=== PATIENT | female | born 1980 | race African-American/Black ===

== ENCOUNTER 2019-07-07 09:44 | Emergency (ER) | payer SELFPAY ==
[~2019-07-07] VITALS: Ht 157.5 cm; Wt 67.2 kg
[2019-07-07 09:53] VITALS: BP 100/55
[2019-07-07] MEDS ORDERED: CARBAMIDE PEROXIDE EAR DROPS 6.5%, 15ML ONE (10:27)
[2019-07-07] MEDS ORDERED: CARBAMIDE PEROXIDE EAR DROPS 6.5%, 15ML LEFT EAR ONE (10:30)
[2019-07-07] MEDS ORDERED: ACETAMINOPHEN 500 MG TABLET ONE (10:46)
[2019-07-07] MEDS ORDERED: ACETAMINOPHEN 500 MG TABLET PO ONE (11:00)
== END 2019-07-07 11:21 | disposition home or self-care (01) ==
LOC: ED 10:35
DX: O26.891 Other specified pregnancy related conditions, first trimester (principal); H66.002 Acute suppurative otitis media without spontaneous rupture of ear drum, left ear; H61.22 Impacted cerumen, left ear; Z3A.11 11 weeks gestation of pregnancy
CPT/HCPCS: 99283

== ENCOUNTER 2020-04-02 16:49 | Emergency (ER) | payer MEDICAID ==
[~2020-04-02] VITALS: Ht 154.9 cm; Wt 60.0 kg
--- NOTE | 2020-04-02 17:08 | NUR ---
INITIAL PT CONTACT. PT WAS IN LOBBY AND HAD A NEAR SYNCOPAL EVENT, STATES "I WAS ABOUT TO PASS OUT SO I SAT DOWN", CODE 250 WAS CALLED. PRESENTS TO ED C/O SPENCER X3 DAYS, DAIRRHEA, LIGHT HEADED, STS SYNCOPAL. PT STATES SIMILAR SYMPTOMS HAVE OCCURED IN THE PAST, FOLLOWING A FALL. PT STATES SHE FELL LAST NIGHT AND HIT HER HEAD BECAUSE SHE FELT LIKE SHE "WAS GOING TO PASS OUT, BUT MY HEAD HURT BEFORE ALL OF THAT". HX PSYCH/CHROHNS. PT UPRIGHT ON GURNEY. ANXIOUS. VSS. CALL LIGHT AND PERSONAL BELONGINGS IN PLACE.
--- NOTE | 2020-04-02 17:11 | NUR ---
LAWSON (PT CONTACT [phone]) CALLED TO DOOR TENDER PT DAUGHTER PER PT REQUEST.
--- NOTE | 2020-04-02 17:35 | NUR ---
PT ARRIVED WITH INFANT DAUGHTER. PROVIDED WITH WARM BLANKETS, DIAPERS & HAT FROM L[facility], PT FRIEND LAWSON ARRIVED TO ROOM & SPOKE WITH PT THEN LEFT WITH TO CARE FOR AT HOME.
[2020-04-02 18:00] VITALS: BP 110/65
--- NOTE | 2020-04-02 18:00 | NUR ---
PT RESTING CALMLY ON GURNEY WITH EYES CLOSED AND BLANKET OVER FACE. NAD, VSS. PT PROVIDED WARM BLANKET, NO ADDITIONAL NEEDS AT THIS TIME. CALL LIGHT IN REACH. CONTINUOUS PULSE OX AND CEMENTER OIL WELL IN PLACE.
--- NOTE | 2020-04-02 18:48 | NUR ---
bedside report to duc funk
[2020-04-02] MEDS ORDERED: SODIUM CHLORIDE 0.9% 1,000ML IVBOLUS ONE (19:30)
[2020-04-02] MEDS ORDERED: KETOROLAC 30 MG/1 ML IVPush ONE (19:30)
[2020-04-02] MEDS ORDERED: PROCHLORPERAZINE 5 MG/ML, 2ML IVPush ONE (19:30)
--- NOTE | 2020-04-02 19:33 | NUR ---
Patient became upset when telegraphic typewriter mechanic went to into room to start IV. [employer] Specialist asked patient if she could leave her ECG leads on since she was coming in with a sycopal episode. Patient started throwing her blankets saying she was clasterphobic. Patient stated that telegraphic typewriter mechanic needed to use the left arm for her IV. [employer] Specialist moved table to the other side of the bed. As telegraphic typewriter mechanic was putting on tornique, telegraphic typewriter mechanic asked patient if she was able to give a urine sample at some point. 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 I want a new nurse." telegraphic typewriter mechanic went to second shift supervisor, who talked to patient. Patient decided to leave AMA
[2020-04-02 19:34] LABS: BASOPHILS % (AUTO) 1 % (0-1); EOSINOPHILS % (AUTO) 2 % (1-7); LYMPHOCYTES % (AUTO) 28 % (22-44); MEAN CORPUSCULAR HEMOGLOBIN 28.7 pg (27.0-34.8); MEAN CORPUSCULAR HGB CONC 33.1 g/dL (32.4-35.8); MEAN PLATELET VOLUME 7.6 fL (7.4-10.4); MONOCYTES % (AUTO) 7 % (2-9); NEUTROPHILS % (AUTO) 62 % (42-75); PLATELET COUNT 510 x10^3/uL (130-400); RED BLOOD COUNT 5.22 x10^6/uL (3.82-5.3); RED CELL DISTRIBUTION WIDTH 15.2 % (9.6-15.2)
[2020-04-02 19:35] LABS: MD NO
[2020-04-02 19:41] LABS: ALANINE AMINOTRANSFERASE 40 U/L (12-78); ALBUMIN 3.9 g/dL (3.4-5.0); ANION GAP 5 mmol/L (5-15); CALCIUM 9.6 mg/dL (8.5-10.1); CHLORIDE 109 mmol/L (98-107)
[2020-04-02 19:46] LABS: ALKALINE PHOSPHATASE 169 U/L (45-117); BILIRUBIN,TOTAL 0.4 mg/dL (0.2-1.0); CREATININE 0.72 mg/dL (0.55-1.02); TOTAL PROTEIN 8.3 g/dL (6.4-8.2)
== END 2020-04-02 19:42 | disposition left against medical advice (07) ==
LOC: ED 19:32
DX: R51.9 Headache, unspecified (principal); R11.2 Nausea with vomiting, unspecified; R94.31 Abnormal electrocardiogram [ECG] [EKG]
CPT/HCPCS: 36415; 80053; 83690; 84703; 85025; 93005; 99284